=== PATIENT | male | born 1995 | race Caucasian/White ===

== ENCOUNTER 2018-02-17 16:00 | Emergency (ER) | payer OTHER ==
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
--- NOTE | 2018-02-18 08:41 | Diagnostic Imaging Report ---
Left knee 3 views Indication: Trauma Comparison: none Findings: No evidence of an acute fracture or dislocation. No joint effusion. No significant focal soft tissue swelling. Minimal early degenerative changes are noted. Impression: No evidence of an acute fracture. In the setting of trauma, if clinical symptoms persist and there is continued concern for an occult fracture, follow up exams in 5-7 days is suggested.
== END 2018-02-17 17:40 | disposition home or self-care (01) ==
LOC: ER 16:00
DX: S80.02XA Contusion of left knee, initial encounter (principal); V43.52XA Car driver injured in collision with other type car in traffic accident, initial encounter; Y93.89 Activity, other specified; Y92.410 Unspecified street and highway as the place of occurrence of the external cause; Y99.8 Other external cause status
CPT/HCPCS: 73562-TC-LT; Z7502